=== PATIENT | female | born 1995 | race Caucasian/White ===

== ENCOUNTER 2017-07-31 14:08 | Emergency (ER) | payer MEDICAID ==
[~2017-07-31] VITALS: Ht 152.4 cm; Wt 52.3 kg
[~2017-07-31 14:08] MED LIST: OMEP-84 PO; ZOF4T PO
[2017-07-31] MEDS ORDERED: IBUP-1984 PO (14:35)
[2017-07-31] MEDS ORDERED: PENI500T2 PO (14:35)
[2017-07-31] MEDS ORDERED: HYDR-3965 PO (14:35)
[2017-07-31 14:58] VITALS: BP 112/77
== END 2017-07-31 15:00 | disposition home or self-care (01) ==
LOC: ER 14:08
DX: K08.89 Other specified disorders of teeth and supporting structures (principal); F17.200 Nicotine dependence, unspecified, uncomplicated; Z79.899 Other long term (current) drug therapy
CPT/HCPCS: 99283

== ENCOUNTER 2017-08-02 06:37 | Emergency (ER) | payer MEDICARE, MEDICAID ==
[~2017-08-02] VITALS: Ht 565.3 cm; Wt 47.0 kg
[~2017-08-02 06:37] MED LIST changes: +HYDR-3965 PO; +IBUP-1984 PO; +PENI500T2 PO
[2017-08-02] MEDS ORDERED: normal saline 1000ML IV soln IV ONE (06:55)
[2017-08-02] MEDS ORDERED: piperacillin/tazo 4.5gm/100ml 100 ML IV ONE (07:20)
[2017-08-02] MEDS ORDERED: vancomycin/NS 1 GM ADD-VANTAGE 250 ML IV ONE (07:20)
[2017-08-02 07:22] LABS: BASOPHILS % (AUTO) 0.2 % (0-1); EOSINOPHILS # (AUTO) 0.1 X10'3 (0-0.9); EOSINOPHILS % (AUTO) 0.7 % (0-6); HEMATOCRIT 43.7 % (35.0-45.0); HEMOGLOBIN 14.9 g/dl (12.0-16.0); LYMPHOCYTES # (AUTO) 1.5 X10'3 (1.1-4.8); LYMPHOCYTES % (AUTO) 12.8 % (21-51); MEAN CORPUSCULAR HEMOGLOBIN 31.1 PG (27.0-31.0); MEAN CORPUSCULAR HGB CONC 34.1 % (33.0-36.5); MEAN CORPUSCULAR VOLUME 91.2 FL (78-98); MEAN PLATELET VOLUME 8.7 FL (7.4-10.4); MONOCYTES # (AUTO) 0.7 X10'3 (0-0.9); MONOCYTES % (AUTO) 5.9 % (2-12); NEUTROPHILS # (AUTO) 9.3 X10'3 (1.8-7.7); NEUTROPHILS % (AUTO) 80.4 % (42-75); PLATELET COUNT 264 X10'3 (140-440); RED BLOOD COUNT 4.79 X10'6 (4.20-5.60); RED CELL DISTRIBUTION WIDTH 13.5 % (11.5-14.5); WHITE BLOOD COUNT 11.6 X10'3 (4.5-11.0)
[2017-08-02 07:27] LABS: PARTIAL THROMBOPLASTIN TIME 28 SECONDS (22-32)
[2017-08-02 07:32] LABS: ALANINE AMINOTRANSFERASE 23 U/L (12-78); ALBUMIN 3.5 G/DL (3.4-5.0); ALBUMIN/GLOBULIN RATIO 0.7 (1.1-1.5); ALKALINE PHOSPHATASE 93 IU/L (46-116); ANION GAP 11 (8-16); ASPARTATE AMINO TRANSFERASE 16 U/L (10-37); BILIRUBIN,TOTAL 0.8 MG/DL (0.1-1.0); BLOOD UREA NITROGEN 15 MG/DL (7-18); BUN/CREATININE RATIO 19.7 (6.6-38.0); CHLORIDE 99 MMOL/L (99-107); CREATININE 0.76 MG/DL (0.40-0.90); GLUCOSE 92 MG/DL (70-104); POTASSIUM 4.1 MMOL/L (3.5-5.1); SODIUM 137 MMOL/L (135-145); TOTAL PROTEIN 8.4 G/DL (6.4-8.2); eGFR > 90 ML/MIN
[2017-08-02] MEDS ORDERED: ondansetron/PF 4mg/2ml inj IV ONE (07:35)
[2017-08-02] MEDS ORDERED: fentaNYL/PF 50MCG/1 ML 2ML syringe IV ONE (07:35)
[2017-08-02] MEDS ORDERED: iohexol 300mg/ml 100ml inj. ONE (08:15)
[2017-08-02] MEDS ORDERED: dexamethasone sod phosphate 10mg/ml inj IV STA (09:19)
[2017-08-02] MEDS ORDERED: LORazepam 2 mg/ml vial IV ONE (09:35)
[2017-08-02 09:37] VITALS: BP 118/47
== END 2017-08-02 11:21 | disposition short-term general hospital (02) ==
LOC: ER 06:38
DX: B37.0 Candidal stomatitis (principal); K12.2 Cellulitis and abscess of mouth; Z79.899 Other long term (current) drug therapy; Z79.2 Long term (current) use of antibiotics
CPT/HCPCS: 36415; 70487; 71045; 80053; 83605; 83735; 84145; 85025; 85610; 85730; 87040; 93005; 96365; 96366; 96367; 96375; 99285; J1100; J2060; J2405; J2543; J3010; J3370; J7030; Q9967

== ENCOUNTER 2018-03-02 09:10 | Outpatient (CLI) | payer BC, MEDICARE ==
[~2018-03-02 09:10] MED LIST changes: -HYDR-3965 PO; -IBUP-1984 PO; -PENI500T2 PO
[2018-03-02 10:02] LABS: BASOPHILS # (AUTO) 0.1 X10'3 (0-0.2); BASOPHILS % (AUTO) 0.5 % (0-1); EOSINOPHILS # (AUTO) 0.1 X10'3 (0-0.9); EOSINOPHILS % (AUTO) 0.5 % (0-6); HEMOGLOBIN 11.4 g/dl (12.0-16.0); LYMPHOCYTES # (AUTO) 2.1 X10'3 (1.1-4.8); LYMPHOCYTES % (AUTO) 16.7 % (21-51); MEAN CORPUSCULAR HGB CONC 33.6 % (33.0-36.5); MEAN CORPUSCULAR VOLUME 89.4 FL (78-98); MEAN PLATELET VOLUME 8.2 FL (7.4-10.4); MONOCYTES # (AUTO) 0.8 X10'3 (0-0.9); MONOCYTES % (AUTO) 5.9 % (2-12); NEUTROPHILS # (AUTO) 9.8 X10'3 (1.8-7.7); NEUTROPHILS % (AUTO) 76.4 % (42-75); PLATELET COUNT 292 X10'3 (140-440); RED BLOOD COUNT 3.81 X10'6 (4.20-5.60); RED CELL DISTRIBUTION WIDTH 15.3 % (11.5-14.5); WHITE BLOOD COUNT 12.8 X10'3 (4.5-11.0)
[2018-03-02 10:15] LABS: GLUCOSE,FASTING GESTATIONAL 80 MG/DL (51-92)
[2018-03-02 10:38] LABS: HIV ANTIBODY 1&2 RAPID NON-REACTIVE (Neg)
[2018-03-02 11:37] LABS: CLARITY,URINE SLIGHTLY CLOUDY (Clear); COLOR,URINE YELLOW (Yellow); GLUCOSE, URINE NEGATIVE (Neg); KETONES,URINE NEGATIVE (Neg); LEUKOCYTE ESTERASE ,URINE MODERATE (Neg); NITRITES, URINE NEGATIVE (Neg); OCCULT BLOOD,URINE NEGATIVE (Neg); PROTEIN,URINE TRACE mg/dl (Neg); UA COLLECTION TYPE NON-SPECIFIED; UROBILINOGEN,URINE 0.2 E.U/dL (0.2-1.0)
[2018-03-02 11:50] LABS: BACTERIA,URINE FEW /HPF (Neg); MUCUS STRANDS FEW /LPF (Neg); SQUAMOUS EPITHELIAL CELL,UR MANY /LPF (FEW); TRANSITIONAL EPI CELLS,URINE FEW /HPF; WBC,URINE 20-30 /HPF (0-4)
[2018-03-03 11:11] LABS: RPR Non Reactive (Non Reactive); RUBELLA ANTIBODIES, IGG <0.90 index (Immune >0.99); VARICELLA-ZOSTER VIRUS AB, IGG 295 index (Immune >165)
[2018-03-03 13:11] LABS: HBSAG SCREEN Negative (Negative)
== END 2018-03-02 23:59 | disposition home or self-care (01) ==
LOC: LAB 09:10
PROVIDERS: ATTEND Specialist
DX: L29.9 Pruritus, unspecified (principal); O09.73 Supervision of high risk pregnancy due to social problems, third trimester
CPT/HCPCS: 36415; 81001; 85025; 86592; 86703; 86762; 86885; 86900; 86901; 87340

== ENCOUNTER 2018-11-10 12:26 | Emergency (ER) | payer MEDICARE, MEDICAID, BC ==
[~2018-11-10] VITALS: Ht 154.9 cm; Wt 47.0 kg
[2018-11-10] MEDS ORDERED: diphenhydrAMINE 50 mg/ml inj IM ONE (12:40)
[2018-11-10] MEDS ORDERED: haloperidol lactate 5mg/ml inj IM ONE (12:40)
[2018-11-10] MEDS ORDERED: LORazepam 2 mg/ml vial IM ONE (12:40)
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
--- NOTE | 2018-11-10 13:40 | NUR ---
Estrada up 50 mg diphenhydramine and 5 mg of haldol. Pt screaming, tearful, labile at the time. Officer Demetrio promised pt he would look for her Country and client calmed down. She ate two sandwiches and drank 3 juices and two milks. Wasted diphenhydramine and haldol.
[2018-11-10 14:20] LABS: URINE HCG NEGATIVE (NEG)
[2018-11-10 14:30] LABS: BASOPHILS # (AUTO) 0.1 X10'3 (0-0.2); BASOPHILS % (AUTO) 0.7 % (0-1); EOSINOPHILS # (AUTO) 0.1 X10'3 (0-0.9); EOSINOPHILS % (AUTO) 1.2 % (0-6); HEMATOCRIT 32.7 % (35.0-45.0); HEMOGLOBIN 10.7 g/dl (12.0-16.0); LYMPHOCYTES # (AUTO) 1.4 X10'3 (1.1-4.8); LYMPHOCYTES % (AUTO) 17.8 % (21-51); MEAN CORPUSCULAR HEMOGLOBIN 28.1 PG (27.0-31.0); MEAN CORPUSCULAR HGB CONC 32.6 g/dL (33.0-36.5); MEAN CORPUSCULAR VOLUME 86.2 FL (78-98); MEAN PLATELET VOLUME 8.1 FL (7.4-10.4); MONOCYTES # (AUTO) 0.5 X10'3 (0-0.9); MONOCYTES % (AUTO) 5.9 % (2-12); NEUTROPHILS # (AUTO) 5.8 X10'3 (1.8-7.7); NEUTROPHILS % (AUTO) 74.4 % (42-75); PLATELET COUNT 320 X10'3 (140-440); RED BLOOD COUNT 3.79 X10'6 (4.20-5.60); RED CELL DISTRIBUTION WIDTH 16.5 % (11.5-14.5); WHITE BLOOD COUNT 7.9 X10'3 (4.5-11.0)
[2018-11-10 14:34] LABS: URINE AMPHETAMINE SCREEN POSITIVE (Neg); URINE BARBITUATE SCREEN NEGATIVE (Neg); URINE BENZODIAZEPINES SCREEN NEGATIVE (Neg); URINE CANNABINOID SCREEN NEGATIVE (Neg); URINE COCAINE SCREEN NEGATIVE (Neg); URINE METHADONE SCREEN NEGATIVE (Neg); URINE OPIATE SCREEN NEGATIVE (Neg); URINE PHENCYCLIDINE SCREEN NEGATIVE (Neg)
[2018-11-10 14:52] LABS: ALANINE AMINOTRANSFERASE 17 U/L (12-78); ALBUMIN 3.8 G/DL (3.4-5.0); ALBUMIN/GLOBULIN RATIO 0.8 (1.1-1.5); ALKALINE PHOSPHATASE 108 IU/L (46-116); ANION GAP 10 (8-16); ASPARTATE AMINO TRANSFERASE 12 U/L (10-37); BILIRUBIN,TOTAL 0.5 MG/DL (0.1-1.0); BLOOD UREA NITROGEN 17 MG/DL (7-18); BUN/CREATININE RATIO 19.5 (6.6-38.0); CALCIUM 9.2 MG/DL (8.5-10.1); CHLORIDE 104 MMOL/L (99-107); CREATININE 0.87 MG/DL (0.40-0.90); GLUCOSE 71 MG/DL (70-104); SODIUM 141 MMOL/L (135-145); TOTAL CARBON DIOXIDE 26.7 MMOL/L (24-32); TOTAL PROTEIN 8.3 G/DL (6.4-8.2); eGFR 79 ML/MIN
--- NOTE | 2018-11-10 14:54 | NUR ---
PT AWAKE IN BED LAYING ON RIGHT SIDE TALKING TO SELF NO NEEDS AT THIS TIME
[2018-11-10 14:59] LABS: ETHANOL < 0.010 GM/DL (0.0-0.010)
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
--- NOTE | 2018-11-10 16:00 | NUR ---
PACKET FAXED TO [facility]
--- NOTE | 2018-11-10 16:21 | NUR ---
Pt is accepted at [facility]. Selvin asked for pt to be discharged so he can put the admit orders in. Discharge orders received.
[2018-11-10] MEDS ORDERED: nicotine 21mg patch - 24 hr TD ONE (16:40)
[2018-11-10 16:42] LABS: CLARITY,URINE CLOUDY (Clear); COLOR,URINE YELLOW (Yellow); GLUCOSE, URINE NEGATIVE (Neg); KETONES,URINE TRACE mg/dl (Neg); LEUKOCYTE ESTERASE ,URINE NEGATIVE (Neg); NITRITES, URINE POSITIVE (Neg); OCCULT BLOOD,URINE NEGATIVE (Neg); PH,URINE 5.5 (4.8-8.0); PROTEIN,URINE 100 mg/dl (Neg)
[2018-11-10 16:44] LABS: UA COLLECTION TYPE CLN CATCH MIDSTREAM
[2018-11-10 16:59] LABS: BACTERIA,URINE 3+ /HPF (Neg); CAL OXALATE CRYSTALS 3+ /HPF (NEGATIVE); MUCUS STRANDS MANY /LPF (Neg); RBC,URINE 0-2 /HPF (0-2); SQUAMOUS EPITHELIAL CELL,UR MANY /LPF (FEW)
[2018-11-10] MEDS ORDERED: NO HOME MEDS (17:23)
== END 2018-11-10 17:27 ==
LOC: ER 12:26
DX: F32.9 Major depressive disorder, single episode, unspecified (principal); R45.851 Suicidal ideations; F15.90 Other stimulant use, unspecified, uncomplicated; R45.1 Restlessness and agitation; Z79.899 Other long term (current) drug therapy; Z59.0 Homelessness
CPT/HCPCS: 36415; 80053; 80305; 80320; 81001; 81025; 84443; 85025; 99285; J1200; J1630

== ENCOUNTER 2018-11-10 16:33 | Inpatient (IN) | payer OTHER, MEDICARE, MEDICAID ==
[~2018-11-10] VITALS: Ht 154.9 cm; Wt 51.5 kg
[2018-11-10] MEDS ORDERED: NO HOME MEDS (17:23)
[2018-11-10] MEDS ORDERED: acetaminophen 325mg tablet PO PRN ×2 (17:25)
[2018-11-10] MEDS ORDERED: tuberculin, purif. prot. deriv. 5 units/0.1ml ID ONE (17:25)
[2018-11-10] MEDS ORDERED: magnesium hydroxide 30ml (MOM) UD suspension PO PRN (17:25)
[2018-11-10] MEDS ORDERED: loperamide 2mg capsule PO PRN (17:25)
[2018-11-10] MEDS ORDERED: mag hydrox/Alum hydrox/simeth 30ml oral suspension PO PRN (17:25)
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
[2018-11-10] MEDS ORDERED: nicotine 21mg patch - 24 hr TD ONE (18:50)
[2018-11-10] MEDS: NICOTINE POLACRILEX 2 MG LOZENGE MM PRN (19:00)
[2018-11-10] MEDS: LORazepam 1 MG tablet PO PRN (19:00)
[2018-11-10 19:39] VITALS: BP 117/72
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
--- NOTE | 2018-11-11 05:00 | NUR ---
Amendment: Pt awakened at 0555. Pt given snack and juice. She reported lower back pain, but refused pain medication. She stated that she told this commercial underwriter, I cannot take Tylenol. Aspirin, Ibuprofen. Will continue to monitor.
[2018-11-11 08:04] VITALS: BP 130/78
[2018-11-11] MEDS: nicotine 21mg patch - 24 hr TD SCH (08:59)
[2018-11-11] MEDS: LORazepam 1 MG tablet PO PRN (11:04)
[2018-11-11] MEDS: NICOTINE POLACRILEX 2 MG LOZENGE MM PRN (11:04)
[2018-11-11] MEDS ORDERED: ondansetron 4mg rapidly disintigrating tab PO PRN ×2 (14:30→19:45)
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
[2018-11-11 19:57] VITALS: BP 117/66
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
[2018-11-12] MEDS: NICOTINE POLACRILEX 2 MG LOZENGE MM PRN ×5 (02:12→22:18)
[2018-11-12] MEDS: LORazepam 1 MG tablet PO PRN ×2 (04:05→12:14)
[2018-11-12 07:53] VITALS: BP 110/65
[2018-11-12] MEDS: hydrOXYzine 25 MG tablet PO PRN ×2 (08:14→22:17)
[2018-11-12] MEDS: nicotine 21mg patch - 24 hr TD SCH (08:20)
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
--- NOTE | 2018-11-12 18:12 | NUR ---
Pt approached this RN after dinner stating that she needed 5 packets of sugar. Asked her what she needed the sugar for. 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 Pt declined, stating that if I didn't give her sugar then she was going to start puking all over. Educated pt that 5 packets of sugar at one time straight are not good for her, offered juice instead. Pt insistent that the only thing that will work is sugar. Pt began leaning over this nurse threatening to puke. Compromised and provided 2 sugar packets to pt. Reassured pt that she is not the first pt coming down from meth that this unit has cared for. Pt stated, "well obviously not because you don't know, I need sugar man." Pt then requested to shower at change of shift. Asked pt if she had soap and shampoo. Pt stated she didn't need them she just wanted to have the water run over her because she's coming down from meth. Pt's scrubs were stained with multiple food stains all over her and she was walking on and tripping over her too long scrub pants. Provided soap, shampoo, clean appropriately sized scrubs, towels and a washcloth. Pt sat down on the floor in front of the shower door while nurse acquiring the shower materials. "I need help up, help me up." Pt had been observed changing position and ambulating around the unit ad rosamaria previously. Told pt that if she was feeling that weak that maybe she should not shower. Pt stated that she would be fine. Assisted pt to standing position, lowered shower bench for pt to sit on. Encouraged pt to use the soap and shampoo. Pt currently showering.
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
[2018-11-13] MEDS: NICOTINE POLACRILEX 2 MG LOZENGE MM PRN ×3 (00:49→08:49)
[2018-11-13] MEDS: LORazepam 1 MG tablet PO PRN ×2 (01:06→08:42)
[2018-11-13 08:11] LABS: CHOL/HDL RATIO 2.5 (0.00-4.99); CHOLESTEROL 160 MG/DL (0-200); HDL CHOLESTEROL 63 MG/DL (35-60); LDL CHOLESTEROL 83 MG/DL (50-100); TRIGLYCERIDES 96 MG/DL (20-135)
[2018-11-13 08:13] VITALS: BP 105/68
[2018-11-13] MEDS: hydrOXYzine 25 MG tablet PO PRN (08:15)
[2018-11-13] MEDS: nicotine 21mg patch - 24 hr TD SCH (08:18)
[2018-11-13] MEDS ORDERED: benztropine 1mg tablet PO STA (09:01)
[2018-11-13] MEDS ORDERED: haloperidol 5mg tablet PO STA (09:01)
[2018-11-13] MEDS ORDERED: LORazepam 1 MG tablet PO STA (09:01)
[2018-11-13] MEDS: NICOTINE POLACRILEX 2 MG LOZENGE BC PRN (10:37)
[2018-11-13] MEDS ORDERED: haloperidol lactate 5mg/ml inj ONE (10:49)
[2018-11-13] MEDS ORDERED: LORazepam 2 mg/ml vial ONE (10:49)
[2018-11-13] MEDS ORDERED: benztropine 1 mg/ml 2ml ampule ONE (10:50)
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
[2018-11-13 19:50] VITALS: BP 110/74
[2018-11-13] MEDS: lurasidone 20mg tablet PO SCH (20:39)
[2018-11-14] MEDS: LORazepam 1 MG tablet PO PRN ×3 (01:58→19:54)
[2018-11-14] MEDS: haloperidol 5mg tablet PO PRN ×3 (01:58→19:54)
[2018-11-14] MEDS: benztropine 1mg tablet PO PRN ×3 (01:58→19:54)
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
[2018-11-14 07:34] VITALS: BP 95/60
[2018-11-14] MEDS: nicotine 21mg patch - 24 hr TD SCH (08:26)
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
[2018-11-14] MEDS: NICOTINE POLACRILEX 2 MG LOZENGE BC PRN (19:19)
[2018-11-14] MEDS: lurasidone 20mg tablet PO SCH (20:17)
[2018-11-14 20:44] VITALS: BP 101/66
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
[2018-11-15] MEDS: NICOTINE POLACRILEX 2 MG LOZENGE BC PRN ×3 (04:03→17:17)
[2018-11-15] MEDS: nicotine 21mg patch - 24 hr TD SCH (07:54)
[2018-11-15 08:00] VITALS: BP 90/46
[2018-11-15] MEDS: haloperidol 5mg tablet PO PRN ×2 (09:04→19:45)
[2018-11-15] MEDS: LORazepam 1 MG tablet PO PRN ×2 (09:04→19:45)
[2018-11-15] MEDS: benztropine 1mg tablet PO PRN ×2 (09:05→19:45)
--- NOTE | 2018-11-15 10:35 | NUR ---
DISCHARGE PLANNING Patient's family requested to share information with treatment team. Betty has been unwilling to sign ALEJANDRO to share treatment information with mother (Sharri) or stepfather ([place]). They report they can no longer provide third republican assistance for the patient or manage her funds from [facility]. Mother has removed herself as payee and Betty will have to visit the [facility] office or agree to service with [facility] to access money after discharge. They are concerned for her safety due to psychotic symptoms and wanting to return to the street where she is unable to meet her basic needs for food, clothing, or fci. Family can be reached at [phone] for further psychiatric history or information regarding risk. Lisette has insurance that will pay for a dual diagnosis program in [place] if the patient is willing after stabilizing on medications. Patient does not receive any community mental health services, but was previously involved with [facility] team at [facility] and refused to engage in treatment.
--- NOTE | 2018-11-15 12:22 | NUR ---
Initial: Pt admit with psychosis with hx meth abuse. Pt currently on regular diet with fluctuating PO intake documented with 25% and 75% of meals. Per RN notes pt receiving snacks potentially meeting nutrient needs with PO intake of meals and snacks combined. LBM 11/14. No edema or wounds. Will continue to follow and monitor need for ONS. Recommendations: 1) Continue regular diet 2) Encourage PO intake 3) Monitor need for ONS 4) Bowel care PRN 5) Weekly wts Addendum: 11/15/18 at [address] Amended: Links added.
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
--- NOTE | 2018-11-15 15:00 | NUR ---
DISCHARGE PLANNING: SW made TC to [facility] and learned that pt had been assessed for services "a few years ago". Per report, pt has an IQ of approximately 79, making her ineligible. for services. A new referral can be made, however it could take up to 6 months for a determination, if pt were to choose to engage in the services for assessment. Adore Connolly, Care Transitions Manager [employer] [id number] Supervised by Jai Matos, [id number]
[2018-11-15 20:00] VITALS: BP 103/62
[2018-11-15] MEDS: lurasidone 20mg tablet PO SCH (21:24)
[2018-11-16] MEDS: NICOTINE POLACRILEX 2 MG LOZENGE BC PRN ×2 (02:28→20:13)
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
[2018-11-16] MEDS: nicotine 21mg patch - 24 hr TD SCH (07:58)
[2018-11-16 08:00] VITALS: BP 100/68
[2018-11-16] MEDS: LORazepam 1 MG tablet PO PRN ×2 (10:34→20:13)
--- NOTE | 2018-11-16 16:36 | NUR ---
PATIENT SIGNED RELEASE TO SPEAK WITH MOTHER
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
[2018-11-16 19:00] VITALS: BP 101/61
[2018-11-16] MEDS: lurasidone 20mg tablet PO SCH (20:13)
[2018-11-16] MEDS: LORazepam 0.5 MG tablet PO SCH (21:00)
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
[2018-11-17] MEDS: NICOTINE POLACRILEX 2 MG LOZENGE BC PRN ×3 (04:27→19:01)
[2018-11-17] MEDS: nicotine 21mg patch - 24 hr TD SCH (07:26)
[2018-11-17 07:43] VITALS: BP 113/68
[2018-11-17] MEDS: LORazepam 1 MG tablet PO PRN (11:51)
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
[2018-11-17 19:00] VITALS: BP 116/75
[2018-11-17] MEDS: LORazepam 0.5 MG tablet PO SCH (20:27)
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
[2018-11-18] MEDS: nicotine 21mg patch - 24 hr TD SCH (07:46)
[2018-11-18 08:00] VITALS: BP 102/65
[2018-11-18] MEDS: NICOTINE POLACRILEX 2 MG LOZENGE BC PRN ×3 (12:35→17:44)
[2018-11-18] MEDS: CARIPRAZINE 1.5 MG CAPSULE PO SCH (14:59)
[2018-11-18] MEDS ORDERED: LORazepam 1 MG tablet PO ONE (15:00)
[2018-11-18] MEDS ORDERED: haloperidol 5mg tablet PO ONE (15:00)
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
[2018-11-18] MEDS: divalproex sodium 500mg tablet.DR PO SCH (17:44)
[2018-11-18] MEDS: lurasidone 20mg tablet PO SCH (17:44)
[2018-11-18 19:57] VITALS: BP 105/63
[2018-11-18] MEDS: LORazepam 0.5 MG tablet PO SCH (20:25)
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
[2018-11-19] MEDS: divalproex sodium 500mg tablet.DR PO SCH (07:37)
[2018-11-19] MEDS: CARIPRAZINE 1.5 MG CAPSULE PO SCH (07:37)
[2018-11-19] MEDS: nicotine 21mg patch - 24 hr TD SCH (07:37)
[2018-11-19] MEDS: NICOTINE POLACRILEX 2 MG LOZENGE BC PRN ×2 (07:45→16:03)
[2018-11-19 08:00] VITALS: BP 98/64
[2018-11-19] MEDS: lurasidone 20mg tablet PO SCH (18:05)
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
[2018-11-19 19:49] VITALS: BP 99/64
[2018-11-19] MEDS: LORazepam 0.5 MG tablet PO SCH (20:21)
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
[2018-11-20] MEDS: NICOTINE POLACRILEX 2 MG LOZENGE BC PRN ×2 (07:37→17:16)
[2018-11-20 08:00] VITALS: BP 97/62
[2018-11-20] MEDS ORDERED: divalproex sodium 250mg tablet PO SCH (08:00)
[2018-11-20] MEDS: nicotine 21mg patch - 24 hr TD SCH (08:06)
--- NOTE | 2018-11-20 10:21 | NUR ---
Reassessment: Documented PO intake seems to be improving, now averaging 75-100% meeting nutrient needs. Noted that pt documented to have refused dinner last night, per RN notes pt reported being "tired and sick" likely resulting in poor PO intake for that meal. Wt has remained stable. LB 11/18. Will continue to follow. Recommendations: 1) Continue regular diet 2) Encourage PO intake 3) Monitor need for ONS 4) Bowel care PRN 5) Weekly wts Addendum: 11/20/18 at [address] Amended: Links added.
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
[2018-11-20] MEDS: lurasidone 20mg tablet PO SCH (18:00)
[2018-11-20 19:41] VITALS: BP 106/72
[2018-11-20] MEDS: LORazepam 0.5 MG tablet PO SCH (21:00)
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
[2018-11-21] MEDS: NICOTINE POLACRILEX 2 MG LOZENGE BC PRN ×4 (07:20→15:12)
[2018-11-21] MEDS: nicotine 21mg patch - 24 hr TD SCH (07:21)
[2018-11-21 08:22] VITALS: BP 99/67
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
--- NOTE | 2018-11-21 14:46 | NUR ---
CALL FROM [facility] - They report that they received the letter signed by the doctor stating that the patient needs a payee and to them it looks like there is enough evidence to get her one however the mother has not yet given up on being her payee so Leonardo will call the mother and see if she would like to give up being the payee. If she does want to give up being the payee "we will see what we can do" to become her payee. They report that they will keep in contact with us and let us know what is going on.
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
[2018-11-21] MEDS: lurasidone 20mg tablet PO SCH (18:19)
[2018-11-21] MEDS: LORazepam 1 MG tablet PO PRN (18:20)
[2018-11-21 20:43] VITALS: BP 119/81
[2018-11-21] MEDS: LORazepam 0.5 MG tablet PO SCH (21:00)
--- NOTE | 2018-11-21 22:39 | NUR ---
Nursing Note: Pt. reports Nicotine Patch already removed.
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
[2018-11-22] MEDS ORDERED: ziprasidone 20mg capsule PO SCH (08:00)
[2018-11-22 08:08] VITALS: BP 96/60
[2018-11-22] MEDS: nicotine 21mg patch - 24 hr TD SCH (08:16)
[2018-11-22] MEDS: LORazepam 1 MG tablet PO PRN (08:41)
[2018-11-22] MEDS: haloperidol 5mg tablet PO PRN (08:41)
[2018-11-22] MEDS: NICOTINE POLACRILEX 2 MG LOZENGE BC PRN (12:54)
[2018-11-22] MEDS: lurasidone 20mg tablet PO SCH (17:43)
--- NOTE | 2018-11-22 17:43 | NUR ---
Patient's Latuda held. Pt. is lethargic. RN informed pt.'s provider and Latuda held for this evening.
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
[2018-11-22 20:08] VITALS: BP 129/84
[2018-11-22] MEDS: LORazepam 0.5 MG tablet PO SCH (21:00)
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
[2018-11-23 08:03] VITALS: BP 115/77
[2018-11-23] MEDS: nicotine 21mg patch - 24 hr TD SCH (09:42)
[2018-11-23] MEDS: lurasidone 20mg tablet PO SCH (17:10)
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
[2018-11-23 20:10] VITALS: BP 132/79
[2018-11-23] MEDS: LORazepam 0.5 MG tablet PO SCH (21:00)
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
[2018-11-24] MEDS: nicotine 21mg patch - 24 hr TD SCH (07:31)
[2018-11-24] MEDS: NICOTINE POLACRILEX 2 MG LOZENGE BC PRN ×4 (07:33→18:05)
[2018-11-24 07:49] VITALS: BP 114/71
[2018-11-24] MEDS: LORazepam 1 MG tablet PO PRN (11:07)
[2018-11-24] MEDS: lurasidone 20mg tablet PO SCH (17:47)
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
[2018-11-24 19:39] VITALS: BP 110/72
[2018-11-24] MEDS: LORazepam 0.5 MG tablet PO SCH (20:39)
[2018-11-24] MEDS: OLANZapine 2.5MG tablet PO SCH (20:39)
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
[2018-11-25] MEDS ORDERED: lamoTRIgine 25mg tablet PO SCH (08:00)
[2018-11-25] MEDS: nicotine 21mg patch - 24 hr TD SCH (08:04)
[2018-11-25 08:06] VITALS: BP 101/68
--- NOTE | 2018-11-25 10:17 | NUR ---
Reassessment: Pt PO 75% avg meals fluctuating so far this admit. LBM 11/23. No nutrition concerns at this time. Will continue to monitor. Recommendations: 1) Continue regular diet 2) Encourage PO intake 3) Bowel care PRN 4) Wt per rx Addendum: 11/25/18 at [address] Amended: Links added.
[2018-11-25] MEDS: NICOTINE POLACRILEX 2 MG LOZENGE BC PRN (12:14)
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
[2018-11-25] MEDS: lurasidone 20mg tablet PO SCH (17:39)
[2018-11-25 19:35] VITALS: BP 121/77
[2018-11-25] MEDS: OLANZapine 2.5MG tablet PO SCH (20:15)
[2018-11-25] MEDS: LORazepam 0.5 MG tablet PO SCH (20:15)
[2018-11-25] MEDS: LORazepam 1 MG tablet PO PRN (20:51)
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
[2018-11-26 07:47] VITALS: BP 113/75
[2018-11-26] MEDS: nicotine 21mg patch - 24 hr TD SCH ×2 (08:06→08:17)
[2018-11-26] MEDS: lamoTRIgine 25mg tablet PO SCH ×2 (08:17→20:24)
[2018-11-26] MEDS: LORazepam 1 MG tablet PO PRN (11:18)
[2018-11-26] MEDS: NICOTINE POLACRILEX 2 MG LOZENGE BC PRN ×2 (11:18→17:00)
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
[2018-11-26] MEDS: lurasidone 20mg tablet PO SCH (17:52)
[2018-11-26 19:41] VITALS: BP 127/74
[2018-11-26] MEDS: LORazepam 0.5 MG tablet PO SCH (20:23)
[2018-11-26] MEDS: OLANZapine 2.5MG tablet PO SCH (20:24)
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
[2018-11-27 07:00] VITALS: BP 106/76
[2018-11-27] MEDS: lurasidone 20mg tablet PO SCH ×2 (08:07→18:00)
[2018-11-27] MEDS: NICOTINE POLACRILEX 2 MG LOZENGE BC PRN ×3 (10:01→16:01)
[2018-11-27] MEDS: LORazepam 1 MG tablet PO PRN (16:19)
[2018-11-27] MEDS ORDERED: NICO-630 TOP (16:32)
[2018-11-27] MEDS ORDERED: LURA80TA3 PO (16:32)
[2018-11-27] MEDS ORDERED: LURA20TA PO (16:32)
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
[2018-11-27 20:05] VITALS: BP 103/60
[2018-11-27] MEDS: LORazepam 0.5 MG tablet PO SCH (20:19)
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
[2018-11-28 07:50] VITALS: BP 129/77
[2018-11-28] MEDS: lurasidone 20mg tablet PO SCH (08:12)
[2018-11-28] MEDS: nicotine 21mg patch - 24 hr TD SCH (08:12)
--- NOTE | 2018-11-28 08:48 | NUR ---
Completed another [facility] referral as [facility] office needed another one. Faxed the referral along with Ct's chest x-ray. Spoke with [facility] Alfonso Team, to try to coordinate Ct's admittance for [facility]. Need to have Ct's meds before admittance can happen. GABI Love, is working on getting Ct's meds prior to d/c. C LOUIE Castillo Lic # [id number]
--- NOTE | 2018-11-28 11:35 | NUR ---
Coordinated with [facility] Team, Ramsey, to machine pecan picker [facility] to transport to [facility]. Picked up meds from [place] in order for Ct to go to [facility]. Ramsey reported Ct has an appt with Dr Crabtree at 2 PM today and will machine pecan picker Ct. LOUIE Bruce Lic # [id number]
[2018-11-28] MEDS: NICOTINE POLACRILEX 2 MG LOZENGE BC PRN (11:43)
[2018-11-28] MEDS: LORazepam 1 MG tablet PO PRN (11:48)
--- NOTE | 2018-11-28 12:00 | NUR ---
Patient was discharged off unit at 1155. She was accompanied by [facility] Team and will be transported to [facility]. Discharge instructions provided to and gone over with patient. Patient denies any questions. All inventoried possessions provided back to patient. Patient has improved since admit. She is not under any emotional or physical distress. Nicotine replacement is provided.
== END 2018-11-28 11:55 | disposition short-term general hospital (02) | DRG 885 ==
LOC: ADULT MH 16:33
PROVIDERS: ADMIT Psychiatry & Neurology Psychiatry; ATTEND Psychiatry & Neurology Psychiatry
DX: F39 Unspecified mood [affective] disorder (principal); R45.851 Suicidal ideations; F43.23 Adjustment disorder with mixed anxiety and depressed mood; F17.210 Nicotine dependence, cigarettes, uncomplicated; F12.10 Cannabis abuse, uncomplicated; F91.8 Other conduct disorders; F15.10 Other stimulant abuse, uncomplicated; Z88.8 Allergy status to other drugs, medicaments and biological substances; Z59.0 Homelessness; Z91.14 Patient's other noncompliance with medication regimen
CPT/HCPCS: 36415; 71045; 80053; 80061; 80164; 80305; 80320; 81001; 81025; 83036; 84443; 85025; 87081; J0515; J1630; J2060; Z7610

== ENCOUNTER 2020-07-21 01:00 | Emergency (ER) | payer MEDICARE, MEDICAID ==
[~2020-07-21] VITALS: Ht 144.8 cm; Wt 54.5 kg
[~2020-07-21 01:00] MED LIST changes: +LURA20TA PO; +LURA80TA3 PO; -OMEP-84 PO; -ZOF4T PO
[2020-07-21] MEDS ORDERED: normal saline 1000ML IV soln IVB ONE (05:25)
[2020-07-21 06:42] LABS: CLARITY,URINE SLIGHTLY CLOUDY (Clear); COLOR,URINE YELLOW (Yellow); GLUCOSE, URINE NEGATIVE (Neg); KETONES,URINE NEGATIVE (Neg); LEUKOCYTE ESTERASE ,URINE LARGE (Neg); NITRITES, URINE NEGATIVE (Neg); OCCULT BLOOD,URINE TRACE-LYSED (Neg); PROTEIN,URINE NEGATIVE (Neg)
[2020-07-21 06:47] LABS: UA COLLECTION TYPE CLN CATCH MIDSTREAM
--- NOTE | 2020-07-21 06:47 | NUR ---
MEDICAL RECORD REQUESTED FAXED TO [facility]
[2020-07-21 06:55] LABS: WBC,URINE 50-100 /HPF (0-4)
[2020-07-21 06:56] LABS: BACTERIA,URINE 4+ /HPF (Neg); RBC,URINE 0-2 /HPF (0-2); SQUAMOUS EPITHELIAL CELL,UR MANY /LPF (FEW)
[2020-07-21 07:43] LABS: BASOPHILS % (AUTO) 0.3 % (0-1); EOSINOPHILS # (AUTO) 0.1 X10'3 (0-0.9); EOSINOPHILS % (AUTO) 0.6 % (0-6); HEMATOCRIT 32.7 % (35.0-45.0); HEMOGLOBIN 11.1 g/dl (12.0-16.0); LYMPHOCYTES # (AUTO) 1.4 X10'3 (1.1-4.8); MEAN CORPUSCULAR HEMOGLOBIN 31.4 PG (27.0-31.0); MEAN CORPUSCULAR HGB CONC 34.1 g/dL (33.0-36.5); MEAN CORPUSCULAR VOLUME 91.9 FL (78-98); MEAN PLATELET VOLUME 7.3 FL (7.4-10.4); MONOCYTES # (AUTO) 0.7 X10'3 (0-0.9); MONOCYTES % (AUTO) 7.8 % (2-12); NEUTROPHILS # (AUTO) 6.9 X10'3 (1.8-7.7); NEUTROPHILS % (AUTO) 76.3 % (42-75); PLATELET COUNT 323 X10'3 (140-440); RED BLOOD COUNT 3.55 X10'6 (4.20-5.60); RED CELL DISTRIBUTION WIDTH 15.3 % (11.5-14.5); WHITE BLOOD COUNT 9.1 X10'3 (4.5-11.0)
--- NOTE | 2020-07-21 08:00 | NUR ---
PT GIVEN SANDWICH AND SNACK.
[2020-07-21 08:07] LABS: ALANINE AMINOTRANSFERASE 17 U/L (12-78); ALBUMIN 2.2 G/DL (3.4-5.0); ALBUMIN/GLOBULIN RATIO 0.4 (1.1-1.5); ALKALINE PHOSPHATASE 113 IU/L (46-116); ANION GAP 11 (8-16); ASPARTATE AMINO TRANSFERASE 5 U/L (10-37); BILIRUBIN,TOTAL 0.2 MG/DL (0.1-1.0); BLOOD UREA NITROGEN 7 MG/DL (7-18); BUN/CREATININE RATIO 12.1 (6.6-38.0); CALCIUM 8.8 MG/DL (8.5-10.1); CHLORIDE 102 MMOL/L (99-107); CREATININE 0.58 MG/DL (0.40-0.90); GLUCOSE 86 MG/DL (70-104); POTASSIUM 4.2 MMOL/L (3.5-5.1); SODIUM 137 MMOL/L (135-145); TOTAL CARBON DIOXIDE 23.9 MMOL/L (24-32); TOTAL PROTEIN 7.1 G/DL (6.4-8.2); eGFR > 90 ML/MIN
[2020-07-21 08:22] VITALS: BP 107/63
[2020-07-21] MEDS ORDERED: AMOX-422 PO (09:13)
--- NOTE | 2020-07-21 09:26 | NUR ---
PT GIVEN TWO BUS PASSES.
== END 2020-07-21 09:30 | disposition home or self-care (01) ==
LOC: ER 01:01
DX: O23.42 Unspecified infection of urinary tract in pregnancy, second trimester (principal); O23.02 Infections of kidney in pregnancy, second trimester; O99.332 Smoking (tobacco) complicating pregnancy, second trimester; F17.200 Nicotine dependence, unspecified, uncomplicated; Z3A.21 21 weeks gestation of pregnancy; Z88.8 Allergy status to other drugs, medicaments and biological substances; Z79.2 Long term (current) use of antibiotics; Z79.899 Other long term (current) drug therapy
CPT/HCPCS: 36415; 80053; 81001; 85025; 99283